=== PATIENT | male | born 1990 | race Caucasian/White ===

== ENCOUNTER → 2016-11-26 | Outpatient (CLI) | payer OTHER ==
--- NOTE | 2016-12-02 14:22 | EEG PRO FEE REPORT ---
EEG INTERPRETATION PATIENT NAME: CARL GAVIRIA ROOM#: ORDER#: [id number] DATE OF STUDY: 11/26/2016 : 1990 REFERRING MD: ELKE GUERRERO M.D. DIAGNOSIS: Seizures REPORT This is a 16 channel EEG recording with a channel of EKG done during wakefulness, hyperventilation, photic stimulation, and early stages of sleep. The background activity of the tracing is well formed and reactive alpha 8-9 cycles per second. Beta 18-22 cycles per second, intermittent, nonlocalized or sustained slower forms also seen. Hyperventilation, photic stimulation were administered did not evoke any abnormal discharges. In the early stages of sleep, more generalized slowing noted. IMPRESSION This EEG is within normal limits. INTERPRETING PHYSICIAN: PORFIRIO VELA M.D. /: MTEFFT TT: 1410 ID: [id number] /: [id number] TD: [id number] JOB: [id number] cc:Shiraz CORNEJO M.D. >
== END ==
LOC: NEURO 12:47
PROVIDERS: ATTEND Pediatrics
DX: G40.89 Other seizures (principal)
CPT/HCPCS: 95819

== ENCOUNTER 2018-04-16 05:47 | Emergency (ER) | payer OTHER ==
[2018-04-16] MEDS ORDERED: ACETAMINOPHEN 325 MG TABLET PO ONE (06:53)
[2018-04-16] MEDS ORDERED: NORMAL SALINE 1000 ML 1,000 ML IV ONE (06:54)
[2018-04-16] MEDS ORDERED: ONDANSETRON 4 MG TAB.RAPDIS PO ONE (06:54)
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
--- NOTE | 2018-04-16 07:28 | RADIOLOGY REPORT (SQ) ---
EXAM DESCRIPTION: XR LUMBAR SPINE ANTEROPOSTERIOR, LATERAL, AND OBLIQUES COMPLETED DATE/TME: 04/16/2018 06:53 CLINICAL HISTORY: 27 years Male, pain COMPARISON: None. Findings: Normal alignment and curvature. Vertebral and intervertebral heights are maintained. Extraspinal structures are grossly intact. IMPRESSION: No acute findings of XR LUMBAR SPINE ANTEROPOSTERIOR, LATERAL, AND OBLIQUES. .
[2018-04-16 09:13] LABS: APPEARANCE,URINE SLIGHTLY-CLOUDY; BILIRUBIN,URINE SMALL (NEGATIVE); COLOR,URINE AMBER; GLUCOSE, URINE NEGATIVE (NEGATIVE); KETONES,URINE 80 mg/dL (NEGATIVE); LEUKOCYTE ESTERASE,URINE NEGATIVE (NEGATIVE); NITRITE,URINE NEGATIVE (NEGATIVE); PROTEIN,URINE 30 mg/dL (NEGATIVE)
[2018-04-16 09:35] LABS: URINE AMPHETAMINES SCREEN NEGATIVE; URINE BARBITURATES SCREEN NEGATIVE; URINE BENZODIAZEPINES SCREEN NEGATIVE; URINE COCAINE SCREEN NEGATIVE; URINE MARIJUANA (THC) SCREEN UNCONFIRMED POSITIVE; URINE METHADONE SCREEN NEGATIVE; URINE PHENCYCLIDINE SCREEN NEGATIVE
[2018-04-16 10:25] VITALS: BP 134/85
== END 2018-04-16 10:29 | disposition home or self-care (01) ==
LOC: ER 05:47
DX: S00.81XA Abrasion of other part of head, initial encounter (principal); S40.212A Abrasion of left shoulder, initial encounter; S40.211A Abrasion of right shoulder, initial encounter; S90.812A Abrasion, left foot, initial encounter; S90.811A Abrasion, right foot, initial encounter; Y35.813A Legal intervention involving manhandling, suspect injured, initial encounter; M54.5 Low back pain; R03.0 Elevated blood-pressure reading, without diagnosis of hypertension; M79.10 Myalgia, unspecified site; E86.0 Dehydration
CPT/HCPCS: 99284; 96360; 81001; 80307; 72110; J7030

== ENCOUNTER 2018-05-01 15:41 | Emergency (ER) | payer OTHER ==
--- NOTE | 2018-05-01 16:50 | PSYCHOLOGICAL NOTE ---
Psych Note - Psych Note Date seen by psych provider: 05/01/18 Time seen by psych provider: 16:00 Psych Note: Medication recommendations per [facility]'s contracted psychiatrist Dr. Andrez MERCADO are as follows Haldol Deconnate 100mg once Haldol 5mg twice daily Cogentin 1 mg daily Geodon 20mg daily 296.40 (F31.9) bipolar 1 disorder; current episode manic: unspecified Impression/plan: Patient is recommended to rescind IVC and is cleared from acute psychatric services
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
[2018-05-01 17:17] LABS: ABSOLUTE EOSINOPHILS # (AUTO) 0.1 10^3/uL (0.0-0.6); ABSOLUTE LYMPHOCYTES (AUTO) 1.4 10^3/uL (0.5-4.7); ABSOLUTE MONOCYTES (AUTO) 0.7 10^3/uL (0.1-1.4); ABSOLUTE NEUT (AUTO) 4.8 10^3/uL (1.7-8.2); BASOPHILS % (AUTO) 0.6 % (0-2); HEMATOCRIT 45.3 % (37.9-51.0); HEMOGLOBIN 15.4 g/dL (13.5-17.0); LYMPHOCYTES % (AUTO) 19.9 % (13-45); MEAN CORPUSCULAR HEMOGLOBIN 30.5 pg (27.0-33.4); MEAN CORPUSCULAR HGB CONC 33.9 g/dL (32.0-36.0); MEAN CORPUSCULAR VOLUME 90 fl (80-97); MONOCYTES % (AUTO) 10.2 % (3-13); PLATELET COUNT 327 10^3/uL (150-450); RED BLOOD COUNT 5.04 10^6/uL (4.35-5.55); RED CELL DISTRIBUTION WIDTH 13.1 % (11.5-14.0); SEGMENTED NEUTROPHILS % (AUTO) 68.3 % (42-78); TOTAL CELLS COUNTED % (AUTO) 100 %; WHITE BLOOD COUNT 7.1 10^3/uL (4.0-10.5)
[2018-05-01] MEDS ORDERED: ZIPRASIDONE HCL 20 MG CAPSULE PO ONE (17:26)
[2018-05-01] MEDS ORDERED: HALOPERIDOL 5 MG TABLET PO ONE (17:26)
[2018-05-01] MEDS ORDERED: BENZTROPINE MESYLATE 1 MG TABLET PO ONE (17:26)
[2018-05-01] MEDS ORDERED: HALOPERIDOL DECANOATE INJ 100 MG/1 ML VIAL IM PRN (17:26)
[2018-05-01 17:34] LABS: ALANINE AMINOTRANSFERASE 26 U/L (21-72); ALBUMIN 4.4 g/dL (3.5-5.0); ALKALINE PHOSPHATASE 98 U/L (38-126); ANION GAP 12 (5-19); ASPARTATE AMINO TRANSFERASE 31 U/L (17-59); BILIRUBIN,DIRECT 0.2 mg/dL (0.0-0.4); BILIRUBIN,TOTAL 0.4 mg/dL (0.2-1.3); BLOOD UREA NITROGEN 20 mg/dL (7-20); CALCIUM 9.9 mg/dL (8.4-10.2); CARBON DIOXIDE 29 mmol/L (22-30); CHLORIDE 102 mmol/L (98-107); GLUCOSE 108 mg/dL (75-110); POTASSIUM 4.4 mmol/L (3.6-5.0); SODIUM 142.8 mmol/L (137-145); TOTAL PROTEIN 7.1 g/dL (6.3-8.2)
[2018-05-01 17:38] LABS: ACETAMINOPHEN < 10 ug/mL (10-30); ALCOHOL < 10 mg/dL (NONE DETECTED); SALICYLATE < 1.0 mg/dL (2.0-20.0)
[2018-05-01 17:52] VITALS: BP 127/70
[2018-05-01 17:57] LABS: APPEARANCE,URINE SLIGHTLY-CLOUDY; BILIRUBIN,URINE NEGATIVE (NEGATIVE); COLOR,URINE YELLOW; GLUCOSE, URINE NEGATIVE (NEGATIVE); KETONES,URINE NEGATIVE (NEGATIVE); LEUKOCYTE ESTERASE,URINE NEGATIVE (NEGATIVE); NITRITE,URINE NEGATIVE (NEGATIVE); PROTEIN,URINE NEGATIVE (NEGATIVE); URINE SPECIFIC GRAVITY 1.029; UROBILINOGEN,URINE NEGATIVE mg/dL (<2.0)
[2018-05-01 18:18] LABS: URINE AMPHETAMINES SCREEN NEGATIVE; URINE BARBITURATES SCREEN NEGATIVE; URINE BENZODIAZEPINES SCREEN NEGATIVE; URINE COCAINE SCREEN NEGATIVE; URINE MARIJUANA (THC) SCREEN UNCONFIRMED POSITIVE; URINE METHADONE SCREEN NEGATIVE; URINE PHENCYCLIDINE SCREEN NEGATIVE
--- NOTE | 2018-05-01 19:14 | EKG REPORT ---
SEVERITY:- NORMAL ECG - SINUS RHYTHM : Confirmed by: Dhara Newton MD 01-May-2018 19:13:55
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
== END 2018-05-01 18:23 | disposition home or self-care (01) ==
LOC: ER 15:41
DX: F31.9 Bipolar disorder, unspecified (principal)
CPT/HCPCS: 93005; 99285; 96372; 36415; 80307 ×4; 85025; 80053; 81001; 93010; J1631

== ENCOUNTER 2018-05-02 23:10 | Emergency (ER) | payer OTHER ==
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
[2018-05-03] LABS: ABSOLUTE BASOPHILS # (AUTO) 0.1 10^3/uL (0.0-0.2); ABSOLUTE EOSINOPHILS # (AUTO) 0.1 10^3/uL (0.0-0.6); ABSOLUTE MONOCYTES (AUTO) 0.6 10^3/uL (0.1-1.4); ABSOLUTE NEUT (AUTO) 4.2 10^3/uL (1.7-8.2); BASOPHILS % (AUTO) 0.8 % (0-2); EOSINOPHILS % (AUTO) 1.8 % (0-6); HEMATOCRIT 44.1 % (37.9-51.0); HEMOGLOBIN 15.1 g/dL (13.5-17.0); MEAN CORPUSCULAR HEMOGLOBIN 30.8 pg (27.0-33.4); MEAN CORPUSCULAR HGB CONC 34.2 g/dL (32.0-36.0); MEAN CORPUSCULAR VOLUME 90 fl (80-97); MONOCYTES % (AUTO) 8.8 % (3-13); PLATELET COUNT 308 10^3/uL (150-450); RED BLOOD COUNT 4.91 10^6/uL (4.35-5.55); RED CELL DISTRIBUTION WIDTH 12.8 % (11.5-14.0); SEGMENTED NEUTROPHILS % (AUTO) 59.6 % (42-78); TOTAL CELLS COUNTED % (AUTO) 100 %; WHITE BLOOD COUNT 7.1 10^3/uL (4.0-10.5)
[2018-05-03 00:05] LABS: APPEARANCE,URINE CLEAR; BILIRUBIN,URINE NEGATIVE (NEGATIVE); COLOR,URINE YELLOW; GLUCOSE, URINE NEGATIVE (NEGATIVE); KETONES,URINE NEGATIVE (NEGATIVE); LEUKOCYTE ESTERASE,URINE NEGATIVE (NEGATIVE); NITRITE,URINE NEGATIVE (NEGATIVE); PROTEIN,URINE NEGATIVE (NEGATIVE); URINE SPECIFIC GRAVITY 1.018; UROBILINOGEN,URINE NEGATIVE mg/dL (<2.0)
[2018-05-03 00:18] LABS: ALANINE AMINOTRANSFERASE 28 U/L (21-72); ALBUMIN 4.4 g/dL (3.5-5.0); ALKALINE PHOSPHATASE 94 U/L (38-126); ANION GAP 11 (5-19); ASPARTATE AMINO TRANSFERASE 25 U/L (17-59); BILIRUBIN,DIRECT 0.1 mg/dL (0.0-0.4); BILIRUBIN,TOTAL 0.3 mg/dL (0.2-1.3); BLOOD UREA NITROGEN 19 mg/dL (7-20); CALCIUM 9.6 mg/dL (8.4-10.2); CARBON DIOXIDE 29 mmol/L (22-30); CHLORIDE 104 mmol/L (98-107); GLUCOSE 85 mg/dL (75-110); POTASSIUM 4.3 mmol/L (3.6-5.0); SODIUM 143.5 mmol/L (137-145); TOTAL PROTEIN 7.1 g/dL (6.3-8.2)
[2018-05-03 00:21] LABS: ACETAMINOPHEN < 10 ug/mL (10-30); ALCOHOL < 10 mg/dL (NONE DETECTED); SALICYLATE < 1.0 mg/dL (2.0-20.0)
[2018-05-03 00:32] LABS: URINE AMPHETAMINES SCREEN NEGATIVE; URINE BARBITURATES SCREEN NEGATIVE; URINE BENZODIAZEPINES SCREEN NEGATIVE; URINE COCAINE SCREEN NEGATIVE; URINE MARIJUANA (THC) SCREEN UNCONFIRMED POSITIVE; URINE METHADONE SCREEN NEGATIVE; URINE PHENCYCLIDINE SCREEN NEGATIVE
--- NOTE | 2018-05-03 09:22 | EKG REPORT ---
SEVERITY:- OTHERWISE NORMAL ECG - SINUS RHYTHM BORDERLINE RIGHT AXIS DEVIATION : Confirmed by: Dhara Newton MD 03-May-2018 09:22:06
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
[2018-05-03] MEDS ORDERED: CHLORPROMAZINE HCL 50 MG TABLET PO SCH (14:00)
[2018-05-03] MEDS ORDERED: CHLORPROMAZINE HCL INJ 25 MG/1 ML AMPULE IM ONE (17:28)
[2018-05-03] MEDS: BUSPIRONE HCL 10 MG TABLET PO SCH (17:57)
[2018-05-04] MEDS: HALOPERIDOL 5 MG TABLET PO SCH ×3 (01:55→09:30)
[2018-05-04] MEDS: CHLORPROMAZINE HCL 50 MG TABLET PO PRN ×2 (01:56→09:31)
[2018-05-04] MEDS: BUSPIRONE HCL 10 MG TABLET PO SCH ×3 (09:31→17:26)
[2018-05-04] MEDS: BENZTROPINE MESYLATE 1 MG TABLET PO SCH ×2 (09:31)
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
[2018-05-04] MEDS: FLUPHENAZINE HCL 2.5 MG TABLET PO SCH (17:26)
[2018-05-04] MEDS: ZIPRASIDONE HCL 20 MG CAPSULE PO PRN (17:26)
[2018-05-05] MEDS: ZIPRASIDONE HCL 20 MG CAPSULE PO PRN ×2 (00:34→10:01)
[2018-05-05] MEDS ORDERED: DIPHENHYDRAMINE HCL 50 MG CAPSULE PO ONE (01:24)
--- NOTE | 2018-05-05 09:19 | ER Document Report ---
Doctor's Note Notes: this gentleman continues to exhibit signs and symptoms of lisa, because of his continued ongoing symptoms plan will be to adjust this patient's medications, will add on Geodon as needed. Will stop Thorazine. We will add on Prolixin. We will continue to give other medications except for also Haldol. We will reassess patient as necessary. He continues to be medically cleared.
--- NOTE | 2018-05-05 09:44 | ER Document Report ---
Doctor's Note Notes: 05/05/18 09:43 Rounds: Chart reviewed and patient interviewed briefly. Patient is very hostile to me. I took care of him when he came in last week and he was extremely confrontational and hostile at that time. Today, I am observing the patient from the doorway. He is very argumentative. Just getting him into a routine of Prolixin, BuSpar, Geodon, and Cogentin. Vital signs are all essentially normal. Labs were positive for marijuana but otherwise essentially normal. Patient appears to be medically stable for transfer or discharge. Kat Cunha MD
[2018-05-05] MEDS: BUSPIRONE HCL 10 MG TABLET PO SCH (10:01)
[2018-05-05] MEDS: FLUPHENAZINE HCL 2.5 MG TABLET PO SCH (10:01)
[2018-05-05] MEDS: BENZTROPINE MESYLATE 1 MG TABLET PO SCH (10:01)
[2018-05-05] MEDS ORDERED: ZIPRASIDONE MESYLATE INJ/PF 20 MG SDV IM ONE ×2 (10:25→15:24)
[2018-05-05] MEDS: BENZTROPINE MESYLATE INJ 2 MG/2 ML AMPULE IM SCH (15:42)
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
[2018-05-05] MEDS ORDERED: FLUPHENAZINE DECANOATE INJ 125 MG/5 ML VIAL IM ONE (17:23)
[2018-05-05] MEDS ORDERED: FLUPHENAZINE DECANOATE INJ 125 MG/5 ML VIAL IM SCH (18:00)
[2018-05-05] MEDS: OLANZAPINE INJ/PF 10 MG SDV IM SCH (18:38)
[2018-05-06 08:47] VITALS: BP 102/70
--- NOTE | 2018-05-06 09:46 | ER Document Report ---
Doctor's Note Notes: 05/06/18 09:45 Rounds: Chart reviewed and patient interviewed. Patient is still somewhat manic. Still somewhat disruptive. Required IM Zyprexa and IM Geodon during last evening to control his behavior. Vital signs were all essentially normal. Lab studies have been normal. Patient appears to be medically stable for transfer or discharge. I am told that the patient is going to be transferred to a longer care facility today. Conner Cunha MD
[2018-05-06] MEDS: BENZTROPINE MESYLATE INJ 2 MG/2 ML AMPULE IM SCH (10:18)
[2018-05-06] MEDS: OLANZAPINE INJ/PF 10 MG SDV IM SCH (10:18)
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
== END 2018-05-06 10:47 ==
LOC: ER 23:10
DX: F31.9 Bipolar disorder, unspecified (principal); F22 Delusional disorders; Z88.0 Allergy status to penicillin
CPT/HCPCS: 93005; 99285; 96372; 36415; 80307 ×4; 85025; 80053; 81001; 93010; J0515 ×2; J2680; J3490 ×2; J3486

== ENCOUNTER 2019-10-19 11:17 | Emergency (ER) | payer OTHER ==
[2019-10-19 12:00] LABS: ABSOLUTE MONOCYTES (AUTO) 0.6 10^3/uL (0.1-1.4); ABSOLUTE NEUT (AUTO) 6.1 10^3/uL (1.7-8.2); BASOPHILS % (AUTO) 0.3 % (0-2); EOSINOPHILS % (AUTO) 0.1 % (0-6); HEMATOCRIT 47.8 % (37.9-51.0); HEMOGLOBIN 16.7 g/dL (13.5-17.0); LYMPHOCYTES % (AUTO) 12.6 % (13-45); MEAN CORPUSCULAR HEMOGLOBIN 31.5 pg (27.0-33.4); MEAN CORPUSCULAR HGB CONC 34.9 g/dL (32.0-36.0); MEAN CORPUSCULAR VOLUME 90 fl (80-97); MONOCYTES % (AUTO) 7.2 % (3-13); PLATELET COUNT 283 10^3/uL (150-450); RED BLOOD COUNT 5.31 10^6/uL (4.35-5.55); RED CELL DISTRIBUTION WIDTH 13.4 % (11.5-14.0); SEGMENTED NEUTROPHILS % (AUTO) 79.8 % (42-78); TOTAL CELLS COUNTED % (AUTO) 100 %; WHITE BLOOD COUNT 7.6 10^3/uL (4.0-10.5)
[2019-10-19 12:15] LABS: ALBUMIN 5.7 g/dL (3.5-5.0); ALKALINE PHOSPHATASE 75 U/L (38-126); ANION GAP 10 (5-19); ASPARTATE AMINO TRANSFERASE 24 U/L (17-59); BLOOD UREA NITROGEN 16 mg/dL (7-20); CARBON DIOXIDE 30 mmol/L (22-30); CHLORIDE 101 mmol/L (98-107); GLUCOSE 104 mg/dL (75-110); POTASSIUM 4.2 mmol/L (3.6-5.0); TOTAL PROTEIN 8.6 g/dL (6.3-8.2)
--- NOTE | 2019-10-19 12:15 | ER Document Report ---
ED Psych Disorder / Suicide - General Chief Complaint: Psych Problem Stated Complaint: ALTERED MENTAL STATUS Time Seen by Provider: 10/19/19 11:47 Primary Care Provider: [facility] [[facility]] - Follow up as needed Mode of Arrival: Ambulatory Information source: Patient Notes: 29-year-old man presents to the emergency department with a history of posttrau matic stress disorder today appears to have delusional thinking. He is brought to the emergency department for evaluation by psychiatric services. Patient states that he suffers from PTSD related to the [place] War. Apparently suffered TBI. TRAVEL OUTSIDE OF THE [place] IN LAST 30 DAYS: No - Related Data Allergies/Adverse Reactions: Penicillins Allergy (Verified 04/17/18 15:50) Past Medical History - Social History Smoking Status: Current Some Day Smoker Drug Abuse: Marijuana Family History: Reviewed & Not Pertinent Patient has homicidal ideation: No Neurological Medical History: Reports: Hx Seizures Renal/ Medical History: Denies: Hx Peritoneal Dialysis Psychiatric Medical History: Reports: Hx Bipolar Disorder - Immunizations Hx Diphtheria, Pertussis, Tetanus Vaccination: Yes Review of Systems - Review of Systems Notes: Constitutional: Negative for fever. HENT: Negative for sore throat. Eyes: Negative for visual changes. Cardiovascular: Negative for chest pain. Respiratory: Negative for shortness of breath. Gastrointestinal: Negative for abdominal pain, vomiting or diarrhea. Genitourinary: Negative for dysuria. Musculoskeletal: Negative for back pain. Skin: Negative for rash. Neurological: Negative for headaches, weakness or numbness. 10 point ROS negative except as marked above and in HPI. Physical Exam - Vital signs Vitals: Temp 98.1 F 10/19/19 11:17 - Notes Notes: PHYSICAL EXAMINATION: Physical Exam: General: Well-nourished well-developed in no acute distress HEENT: NC/AT, pupils equal round and reactive to light, MM moist,nares clear, oropharynx clear, airway patent Neck: supple, no adenopathy, no masses. Good range of motion Lungs: clear, no wheezing, no rales no rhonchi CVS: Regular rate and rhythm no murmur gallop or rub Abdomen: Soft, active, nontender, no masses, no hepatosplenomegaly Ext: No edema, clubbing or cyanosis. Neuro: Alert and responsive, moving all 4 extremities on command, cranial nerves intact, no focal findings Skin: Intact no open lesions, no rash PSYCH: Engaging, denies suicidal or homicidal ideation, shows some insight. Course - Re-evaluation Re-evalutation: 10/19/19 17:25 The patient was seen by psychiatry and felt that he does need to be involuntarily committed and will be referred to the [place] hospital system for further treatment and stabilization. - Vital Signs Vital signs: Temp Pulse Resp BP Pulse Ox 98.1 F 111 H 18 114/83 98 10/19/19 11:28 10/19/19 11:28 10/19/19 11:28 10/19/19 11:28 10/19/19 11:28 - Laboratory Result Diagrams: 10/19/19 11:45 10/19/19 11:45 Laboratory results interpreted by me: 10/19/19 10/19/19 10/19/19 11:45 11:45 11:45 Lymph % (Auto) 12.6 L Seg Neutrophils % 79.8 H Total Protein 8.6 H Albumin 5.7 H Urine Ketones 25 H Urine Urobilinogen 2.0 H Urine Ascorbic Acid 20 H - EKG Interpretation by Ks EKG shows normal: Sinus rhythm - Rate of 88, no acute ST or T wave abnormalities Interpretation: Normal electrocardiogram. Discharge - Discharge Clinical Impression: Bipolar disease, chronic, Posttraumatic stress disorder Condition: Good Disposition: PSYCH HOSP/UNIT [facility] [[facility]] - Follow up as needed
[2019-10-19 12:21] LABS: APPEARANCE,URINE CLEAR; BILIRUBIN,URINE NEGATIVE (NEGATIVE); COLOR,URINE YELLOW; GLUCOSE, URINE NEGATIVE (NEGATIVE); KETONES,URINE 25 mg/dL (NEGATIVE); URINE SPECIFIC GRAVITY 1.027
[2019-10-19 12:22] LABS: ADD MANUAL MICROSCOPIC YES; LEUKOCYTE ESTERASE,URINE NEGATIVE (NEGATIVE); NITRITE,URINE NEGATIVE (NEGATIVE); PROTEIN,URINE NEGATIVE (NEGATIVE)
[2019-10-19 12:23] LABS: RBC,URINE NONE SEEN /HPF; WBC,URINE RARE /HPF
[2019-10-19 12:28] LABS: URINE AMPHETAMINES SCREEN NEGATIVE; URINE BARBITURATES SCREEN NEGATIVE; URINE BENZODIAZEPINES SCREEN NEGATIVE; URINE COCAINE SCREEN NEGATIVE; URINE METHADONE SCREEN NEGATIVE; URINE PHENCYCLIDINE SCREEN NEGATIVE
[2019-10-19 12:30] LABS: URINE MARIJUANA (THC) SCREEN UNCONFIRMED POSITIVE
[2019-10-19] MEDS: BENZTROPINE MESYLATE 1 MG TABLET PO SCH (13:53)
[2019-10-19] MEDS: CHLORPROMAZINE HCL 50 MG TABLET PO SCH ×2 (13:53→18:57)
[2019-10-19] MEDS ORDERED: LORAZEPAM INJ 2 MG/1 ML VIAL IM ONE (16:05)
[2019-10-19] MEDS ORDERED: ZIPRASIDONE MESYLATE INJ/PF 20 MG SDV IM ONE (16:06)
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
[2019-10-20] MEDS: CHLORPROMAZINE HCL 50 MG TABLET PO SCH ×7 (00:45→23:09)
--- NOTE | 2019-10-20 08:28 | EKG REPORT ---
SEVERITY:- OTHERWISE NORMAL ECG - SINUS RHYTHM BORDERLINE RIGHT AXIS DEVIATION : Confirmed by: Narendra Bravo 20-Oct-2019 08:27:57
[2019-10-20] MEDS: BENZTROPINE MESYLATE 1 MG TABLET PO SCH (10:59)
--- NOTE | 2019-10-20 15:36 | PSYCHOLOGICAL NOTE ---
Psych Note - Psych Note Date seen by psych provider: 10/20/19 Time seen by psych provider: 13:75 - [id number] Psych Note: Presenting Problem: Patient is a 29 year old male who presented to the [facility] ED 10/19/2019 via [facility] voluntarily, after significant other was arrested for warrants, due to him acting bizarre. He has a history of PTSD and Bipolar. 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 Today observed patient come out of the shower. He then stood in the doorway of his room or would pace his room. He reported he is in the emergency department for "misunderstanding." He stated "there is no legal reason for the IVC because I am not a danger to self and others." He was informed that based on interactions with medical staff yesterday and his presentation there was concern for elevated mood. he commented "oh yeah an elevated mood, that is not typical but does happen time to time." He admitted "I was in emotional distress yesterday, someone I love betrayed me and that made me think how the love may have been a lie." Patient stated "I wasn't myself, I alerted myself and was concerned." Patient identified he and he significant other had an argument yesterday, in that moment I wanted her to leave, she said things that got me here to the ED, she was angry and lashing out, I was also angry." He reported significant other had warrants do police took her in to custody and he was supposed to come to the ED to be checked out then go bail her out of nursing home." He commented "I failed her." Patient stated he doesn't sleep well, so is often up throughout the night and sleeps all day which interferes with significant other's schedule of doing school work during the day because she likes to listen to the radio but feels she has to be quiet when he is sleeping. Patient stated he takes his medication daily [facility]. He commented "once a year is sufficient but I prefer twice a year." He commented "the medication I got here has put me in a good state, you can give me a week prescription and I can [facility]." Other patient's were being disruptive and when this clinician stated everyone needs to follow the directions and recommendation from medical staff patient commented "so this is a group effort." Patient interacted and answered questions. Patient was alert and oriented to self, person, place, time and situation. Mood was manic with congruent affect (psychomotor agitation, pressured speech, some tangential thinking). Patient did not appear to be responding to internal stimuli as evidenced by fair eye contact and answering questions appropriately when addressed. Conversational speech was within normal limits for rate, tone and prosody. Intellectual abilities are estimated to be average. Thought processes were somewhat tangential but perseverative on not being a danger to self and others. Insight, judgment and impulse control were poor as evidenced by wanting prescriptions to go home and [facility] (not being aware of current manic symptoms). Please note the nurses station patient is in became very acute regarding other patient's behaviors. Patient remained in his room, often in the doorway, but in his room. He did not engage or react to other patients. Interventions: Used open ended questioning to obtain information regarding current crisis situation and past, as well as to get patient to elaborate. Used coming alongside when patient talked about argument with significant other. Challenged and confronted patient about needing to be seen by outpatient provider more than once or twice a year. Provided psycho-education regarding IVC and policy. Diagnosis: Shantal History of PTSD and Bipolar Medication recommendations: Increase Thorazine to 50MG PO every 4 hours for shantal/psychosis/agitation Continue Cogentin 1MG daily to curb tremor side effects often associated with antipsychotic medication Impression/Plan: Recommendation to maintain FULL IVC. Patient continued to present manic (psychomotor agitation, pressured speech, some tangential thinking). He has a history of PTSD and Bipolar. He admitted to poor sleep which altered sleep pattern (up all night, sleeps during day). He had an argument with significant other which resulted in LE who then took significant other to nursing home due to outstanding warrants (all psychosicial stress). Medication was just started yesterday. Consulted with Dr. Harris regarding the management and care of patient. ED Physician in agreement with recommendations.
[2019-10-21] MEDS: CHLORPROMAZINE HCL 50 MG TABLET PO SCH ×3 (01:58→09:47)
[2019-10-21] MEDS: BENZTROPINE MESYLATE 1 MG TABLET PO SCH (09:47)
[2019-10-21] MEDS ORDERED: CHLORPROMAZINE HCL 50 MG TABLET PO SCH (14:00)
[2019-10-21] MEDS ORDERED: CHLORPROMAZINE HCL 50 MG TABLET PO ONE ×2 (14:06→14:09)
[2019-10-21] MEDS ORDERED: CHLORPROMAZINE HCL 50 MG TABLET PO PRN (14:13)
--- NOTE | 2019-10-21 15:33 | PSYCHOLOGICAL NOTE ---
Psych Note - Psych Note Date seen by psych provider: 10/21/19 Time seen by psych provider: 12:42 - [id number]. [id number]. Psych Note: Presenting Problem: Patient is a 29 year old male who presented to the [facility] ED 10/19/2019 via [facility] voluntarily, after significant other was arrested for warrants, due to him acting bizarre. He has a history of PTSD and Bipolar. 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 Yesterday he continued with shantal (psychomotor agitation, pressured speech, some tangential thinking). Medication adjustments took place yesterday via increasing frequency of Thorazine from Q6 to Q4. Today observed patient pacing his room and standing in the doorway. Attending ED nurse stated "he won't stop talking, talks about anything and everything, is manic, is easily redirected and no behavioral/aggressive issues." Patient stated "you have no legal reason to keep me I am not a danger to myself or others." He was informed his presentation is manic and with his history of PTSD and Bipolar that is often a sign of distress and instability. He commented "i do not have Bipolar Disorder." When challenged and confronted about him telling this clinician yesterday he did have concerns with his mental health the night he and his significant other had an argument, as well as saying the medication he was getting in the ED seemed helpful asking for a prescription and to [facility] he said "I don't remember saying that." Today he stated "the medication makes him sleep a lot more which he doesn't like." This is significant because yesterday he said he doesn't sleep well, often staying up at night and sleeping thought the day. Today he talked and perseverated about his significant other "trying to black mail him." He reported he used to take medication "but no longer needs it." He stated he would not take medications and was made aware as an IVC he cannot refuse medication as they are felt to be necessary for stabilization, that currently they are by mouth and if he refuses they can be administered as a shot. Patient was alert and oriented to self, person, place, time and situation. Mood was manic with congruent affect (psychomotor agitation, pressured speech, some tangential thinking, persecutory thoughts about significant other blackmailing him). Patient did not appear to be responding to internal stimuli as evidenced by fair eye contact and answering questions appropriately when addressed. Conversational speech was somewhat pressured. Intellectual abilities are estimated to be average. Thought processes were somewhat tangential but perseverative on significant other blackmailing him. Insight, judgment and impulse control were poor as evidenced by lack of awareness of current manic symptoms). Interventions: Used open ended questioning to obtain information regarding current crisis situation and past, as well as to get patient to elaborate. Challenged and confronted patient about his conversation with this clinician yesterday where he admitted concern with his MH the night of the argument with significant other as well as saying medications seemed to be working good yesterday but today noted it is making him sleep more and he doesn't like it. Psychoeducated patient about IVC and medication administration for stabilization. Diagnosis: Shantal History of PTSD and Bipolar Medication recommendations: Change Thorazine to 50MG PO every 4 hours as needed for oliver a/psychosis/agitation Continue Cogentin 1MG daily to curb tremor side effects often associated with antipsychotic medication Add Zyprexa 5MG twice a day for psychosis/mood stabilization/impulse control Add Depakote ER 250MG twice a day for mood stabilization Impression/Plan: Recommendation to maintain FULL IVC. Patient continued to present manic (psychomotor agitation, pressured speech, some tangential thinking, perseveration/persecutory delusions about significant other blackmailing him). He has a history of PTSD and Bipolar. He admitted to poor sleep which altered sleep pattern (up all night, sleeps during day). He had an argument with significant other which resulted in LE who then took significant other to [facility] due to outstanding warrants (all psychosicial stress). Medication was just started 10/19/2019, adjusted 10/20/2019 and continued adjustments today (10/21/2019). Consulted with Dr. Harris regarding the management and care of patient. ED Physician in agreement with recommendations.
[2019-10-21] MEDS ORDERED: DIVALPROEX SODIUM 250 MG TAB.SR.24H PO SCH (18:00)
[2019-10-21] MEDS ORDERED: OLANZAPINE 5 MG TABLET PO SCH (18:00)
[2019-10-22 09:05] VITALS: BP 121/71
--- NOTE | 2019-10-22 09:11 | ER Document Report ---
Doctor's Note Notes: 10/22/19 09:10 The [facility] [employer] [employer] deputy is here to transport the patient to the [facility]. The entire form was only partially completed. I filled in the required blank areas and signed the form. The patient is alert oriented, is arguing about his valuables form. He is stable for transfer at this time.
== END 2019-10-22 09:00 ==
LOC: ER 11:17
DX: F31.9 Bipolar disorder, unspecified (principal); F43.10 Post-traumatic stress disorder, unspecified; R41.82 Altered mental status, unspecified; F22 Delusional disorders; Z87.820 Personal history of traumatic brain injury; F17.200 Nicotine dependence, unspecified, uncomplicated; F12.10 Cannabis abuse, uncomplicated; Z88.0 Allergy status to penicillin
CPT/HCPCS: 93005; 99285; 96372; 36415; 85025; 80053; 81001; 80307; 93010; J3490 ×4; J2060; J3486